=== PATIENT | female | born 1985 | race Caucasian/White ===

== ENCOUNTER 2017-12-23 09:22 | Observation (INO) | payer BC ==
[2017-12-23] MEDS ORDERED: Ondansetron 4 MG/2 ML SDV IVPUSH ONE ×2 (10:33→11:21)
[2017-12-23] MEDS ORDERED: Ketorolac 30 MG/ML SDV IVPUSH ONE (10:33)
[2017-12-23] MEDS ORDERED: Sodium Chloride 0.9% 1,000 ML IV ONE ×2 (10:33→13:18)
[2017-12-23] MEDS ORDERED: Morphine 4 MG/ML Syringe IVPUSH ONE (10:34)
--- NOTE | 2017-12-23 11:14 | EDM.PDOC ---
ED HPI GENERAL MEDICAL PROBLEM - General Chief Complaint: Flank Pain Stated Complaint: BACK PAIN Time Seen by Provider: 12/23/17 10:15 Source of Information: Reports: Patient History Limitations: Reports: No Limitations - History of Present Illness INITIAL COMMENTS - FREE TEXT/NARRATIVE: HISTORY AND PHYSICAL: History of present illness: Patient is a 32-year-old female who presents to the emergency room with complaints of left flank pain that wraps around to the left side of her abdomen started at 7:30 this morning. She states that her urine "looks like Coke and is painful". Does have nausea associated with this. Patient is currently resting on her hands and knees and appears to be uncomfortable, unable to find a position of comfort. She denies any fever, chills, chest pain, shortness of breath or cough. Denies any vomiting, diarrhea or constipation. Review of systems: As per history of present illness and below otherwise all systems reviewed and negative. Past medical history: As per history of present illness and as reviewed below otherwise noncontributory. Surgical history: As per history of present illness and as reviewed below otherwise noncontributory. Social history: No reported history of drug or alcohol abuse. Family history: As per history of present illness and as reviewed below otherwise noncontributory. Physical exam: General: Well-developed and well-nourished 32-year-old female. Alert and oriented. Nontoxic appearing and appears mildly uncomfortable. HEENT: Atraumatic, normocephalic, pupils equal and reactive bilaterally, negative for conjunctival pallor or scleral icterus, mucous membranes moist, throat clear, neck supple, nontender, trachea midline. No drooling or trismus noted. No meningeal signs Lungs: Clear to auscultation, breath sounds equal bilaterally, chest nontender. Heart: S1S2, regular rate and rhythm without overt murmur Abdomen: Soft, nondistended, LUQ/LLQ abdominal discomfort/pain with palpation. Negative for masses or hepatosplenomegaly. Left-sided costovertebral tenderness. Pelvis: Stable nontender. Genitourinary: Deferred. Rectal: Deferred. Skin: Intact, warm, dry. No lesions or rashes noted. Extremities: Atraumatic, negative for cords or calf pain. Neurovascular unremarkable. Neuro: Awake, alert, oriented. Cranial nerves II through XII unremarkable. Cerebellum unremarkable. Motor and sensory unremarkable throughout. Exam nonfocal. Notes: Patient states she is 10 out of 10 pain. IV fluids/medications have been ordered. Labs and CT are pending 1125: Patient had found some relief with medications, pain was down to a 6 out of 10 and is now back to an 8 out of 10. Nausea/vomiting has returned. New medications have been ordered; waiting for CT to be completed. WBC is 18.47, large occult blood with too numerous to count RBCs, noted in her urine. 1315: CT shows a 4-5 mm obstructing stone at the left ureteropelvic junction with moderate hydronephrosis. He shouldn't gets minimal relief with IV pain medications and doesn't feel like she would do well at home. She states she would like to stay for pain management and talked to the urologist. Dr. Nava was paged and consulted on this case. He is agreeable to keeping her for observation on [facility]. Vital signs remain stable patient will go to [facility] shortly. Diagnostics: CBC, CMP, UA, CT abdomen and pelvis Therapeutics: IV fluid, Zofran, Toradol, morphine, dilaudid, rocephin Impression: Kidney stone, left Hydronephrosis Intractable pain Plan: Observation to [facility] Definitive disposition and diagnosis as appropriate pending reevaluation and review of above. Onset: Today Duration: Hour(s): Location: Reports: Abdomen Flank Pain Score (Numeric/FACES): 10 - Related Data Allergies Allergy/AdvReac Type Severity Reaction Status Date / Time No Known Allergies Allergy Verified 12/23/17 10:11 Home Meds: Home Meds . [No Known Home Meds] 12/23/17 [History] Past Medical History HEENT History: Reports: Other (See Below) Other HEENT History: Wears glasses Genitourinary History: Reports: STD Other Genitourinary History: Genital herpes [employer] History: Reports: Other OB/BYN History: Gestational Hypertension - both pregnancies Musculoskeletal History: Reports: None Neurological History: Reports: None Psychiatric History: Reports: None Endocrine/Metabolic History: Reports: None Other Dermatologic History: Hives, Pt states she takes allergra per MD for hives all over her body. - Past Surgical History HEENT Surgical History: Reports: Tonsillectomy Other HEENT Surgeries/Procedures: 2007 Female Surgical History: Reports: Section, LEEP Other Female Surgeries/Procedures: 2011, 2014 Musculoskeletal Surgical History: Reports: None Oncologic Surgical History: Reports: Biopsy of Breast Other Oncologic Surgeries/Procedures: 2009 Social & Family History - Family History Family Medical History: Noncontributory - Tobacco Use Smoking Status *Q: Never Smoker Second Hand Smoke Exposure: No - Caffeine Use Caffeine Use: Reports: Other - Recreational Drug Use Recreational Drug Use: No ED ROS GENERAL - Review of Systems Review Of Systems: ROS reveals no pertinent complaints other than HPI. ED EXAM, GI/ABD - Physical Exam Exam: See Below (See dictation) Course - Vital Signs Last Recorded V/S: Last Vital Signs Temp 97.7 F 12/23/17 10:43 Pulse 100 12/23/17 11:26 Resp 24 H 12/23/17 11:26 BP 117/94 H 12/23/17 11:26 Pulse Ox 99 12/23/17 11:26 - Orders/Labs/Meds Orders: Active Orders 24 hr Category Date Time Status Admission Status [Patient Status] [ADT] Stat ADT 12/23/17 13:17 Ordered UA W/MICROSCOPIC [URIN] Stat Lab 12/23/17 10:35 Ordered Sodium Chloride 0.9% [Normal Saline] 1,000 ml Med 12/23/17 13:18 Ordered IV STAT Labs: Laboratory Tests 12/23/17 12/23/17 12/23/17 Range/Units 10:22 10:22 10:35 WBC 18.47 H (4.0-11.0) K/uL RBC 4.80 (4.30-5.90) M/uL Hgb 14.3 (12.0-16.0) g/dL Hct 42.0 (36.0-46.0) % MCV 87.5 (80.0-98.0) fL MCH 29.8 (27.0-32.0) pg MCHC 34.0 (31.0-37.0) g/dL RDW Std Deviation 46.3 (28.0-62.0) fl RDW Coeff of Mitra 15 (11.0-15.0) % Plt Count 379 (150-400) K/uL MPV 10.00 (7.40-12.00) fL Neut % (Auto) 86.8 H (48.0-80.0) % Lymph % (Auto) 8.2 L (16.0-40.0) % Carver % (Auto) 4.8 (0.0-15.0) % Eos % (Auto) 0.1 (0.0-7.0) % Baso % (Auto) 0.1 (0.0-1.5) % Neut # (Auto) 16.0 H (1.4-5.7) K/uL Lymph # (Auto) 1.5 (0.6-2.4) K/uL Carver # (Auto) 0.9 H (0.0-0.8) K/uL Eos # (Auto) 0.0 (0.0-0.7) K/uL Baso # (Auto) 0.0 (0.0-0.1) K/uL Nucleated RBC % 0.0 /100WBC Nucleated RBCs # 0 K/uL Sodium 141 (136-145) mmol/L Potassium 4.4 (3.5-5.1) mmol/L Chloride 107 (98-107) mmol/L Carbon Dioxide 23.2 (21.0-32.0) mmol/L BUN 14 (7.0-18.0) mg/dL Creatinine 1.2 H (0.6-1.0) mg/dL Est Cr Clr Drug Dosing 66.64 mL/min Estimated GFR (MDRD) 51.4 ml/min Glucose 123 H (74-106) mg/dL Calcium 9.3 (8.5-10.1) mg/dL Total Bilirubin 0.7 (0.2-1.0) mg/dL AST 18 (15-37) IU/L ALT 14 (14-63) IU/L Alkaline Phosphatase 47 (46-116) U/L Total Protein 7.3 (6.4-8.2) g/dL Albumin 4.5 (3.4-5.0) g/dL Globulin 2.8 (2.0-3.5) g/dL Albumin/Globulin Ratio 1.6 (1.3-2.8) Urine Color RED Urine Appearance CLOUDY Urine pH 6.5 (5.0-8.0) Ur Specific [place] 1.025 (1.001-1.035) Urine Protein 100 (NEGATIVE) mg/dL Urine Glucose (UA) NEGATIVE (NEGATIVE) mg/dL Urine Ketones 40 H (NEGATIVE) mg/dL Urine Occult Blood LARGE H (NEGATIVE) Urine Nitrite NEGATIVE (NEGATIVE) Urine Bilirubin NEGATIVE (NEGATIVE) Urine Urobilinogen 0.2 (<2.0) EU/dL Ur Leukocyte Esterase NEGATIVE (NEGATIVE) Urine RBC TOO NUMBEROUS TO CT H (0-2/HPF) Urine WBC 0-2 (0-5/HPF) Ur Epithelial Cells RARE (NONE-FEW) Amorphous Sediment RARE (NEGATIVE) Urine Bacteria RARE (NEGATIVE) Urine HCG, Qual (NEGATIVE) 12/23/17 Range/Units 10:35 WBC (4.0-11.0) K/uL RBC (4.30-5.90) M/uL Hgb (12.0-16.0) g/dL Hct (36.0-46.0) % MCV (80.0-98.0) fL MCH (27.0-32.0) pg MCHC (31.0-37.0) g/dL RDW Std Deviation (28.0-62.0) fl RDW Coeff of Mitra (11.0-15.0) % Plt Count (150-400) K/uL MPV (7.40-12.00) fL Neut % (Auto) (48.0-80.0) % Lymph % (Auto) (16.0-40.0) % Carver % (Auto) (0.0-15.0) % Eos % (Auto) (0.0-7.0) % Baso % (Auto) (0.0-1.5) % Neut # (Auto) (1.4-5.7) K/uL Lymph # (Auto) (0.6-2.4) K/uL Carver # (Auto) (0.0-0.8) K/uL Eos # (Auto) (0.0-0.7) K/uL Baso # (Auto) (0.0-0.1) K/uL Nucleated RBC % /100WBC Nucleated RBCs # K/uL Sodium (136-145) mmol/L Potassium (3.5-5.1) mmol/L Chloride (98-107) mmol/L Carbon Dioxide (21.0-32.0) mmol/L BUN (7.0-18.0) mg/dL Creatinine (0.6-1.0) mg/dL Est Cr Clr Drug Dosing mL/min Estimated GFR (MDRD) ml/min Glucose (74-106) mg/dL Calcium (8.5-10.1) mg/dL Total Bilirubin (0.2-1.0) mg/dL AST (15-37) IU/L ALT (14-63) IU/L Alkaline Phosphatase (46-116) U/L Total Protein (6.4-8.2) g/dL Albumin (3.4-5.0) g/dL Globulin (2.0-3.5) g/dL Albumin/Globulin Ratio (1.3-2.8) Urine Color Urine Appearance Urine pH (5.0-8.0) Ur Specific [place] (1.001-1.035) Urine Protein (NEGATIVE) mg/dL Urine Glucose (UA) (NEGATIVE) mg/dL Urine Ketones (NEGATIVE) mg/dL Urine Occult Blood (NEGATIVE) Urine Nitrite (NEGATIVE) Urine Bilirubin (NEGATIVE) Urine Urobilinogen (<2.0) EU/dL Ur Leukocyte Esterase (NEGATIVE) Urine RBC (0-2/HPF) Urine WBC (0-5/HPF) Ur Epithelial Cells (NONE-FEW) Amorphous Sediment (NEGATIVE) Urine Bacteria (NEGATIVE) Urine HCG, Qual NEGATIVE (NEGATIVE) Meds: Medications Discontinued Medications Generic Name Dose Route Start Last Admin Trade Name Freq PRN Reason Stop Dose Admin Hydromorphone HCl 0.5 mg 12/23/17 11:20 12/23/17 11:25 Dilaudid IV 12/23/17 11:21 0.5 mg ONETIME ONE Administration Hydromorphone HCl 0.5 mg 12/23/17 12:40 12/23/17 12:44 Dilaudid IV 12/23/17 12:41 0.5 mg ONETIME ONE Administration Sodium Chloride 1,000 mls @ 999 mls/hr 12/23/17 10:33 12/23/17 10:41 Normal Saline IV 12/23/17 11:33 999 mls/hr .Bolus ONE Administration Ketorolac Tromethamine 30 mg 12/23/17 10:33 12/23/17 10:41 Toradol IVPUSH 12/23/17 10:34 30 mg ONETIME ONE Administration Morphine Sulfate 4 mg 12/23/17 10:34 12/23/17 10:41 Morphine IVPUSH 12/23/17 10:35 4 mg ONETIME ONE Administration Ondansetron HCl 4 mg 12/23/17 10:33 12/23/17 10:41 Zofran IVPUSH 12/23/17 10:34 4 mg ONETIME ONE Administration Ondansetron HCl 4 mg 12/23/17 11:21 12/23/17 11:25 Zofran IVPUSH 12/23/17 11:22 4 mg ONETIME ONE Administration Departure - Departure Time of Disposition: 13:21 Disposition: Refer to Observation Clinical Impression: Kidney stone on left side, Intractable pain - Discharge Information Referrals: PCP,None [Primary Care Provider] - Forms: ED Department Discharge - My Orders Last 24 Hours: My Active Orders 12/23/17 10:35 UA W/MICROSCOPIC [URIN] Stat 12/23/17 13:17 Admission Status [Patient Status] [ADT] Stat 12/23/17 13:18 Sodium Chloride 0.9% [Normal Saline] 1,000 ml IV STAT - Assessment/Plan Last 24 Hours: My Active Orders 12/23/17 10:35 UA W/MICROSCOPIC [URIN] Stat 12/23/17 13:17 Admission Status [Patient Status] [ADT] Stat 12/23/17 13:18 Sodium Chloride 0.9% [Normal Saline] 1,000 ml IV STAT
[2017-12-23] MEDS ORDERED: HYDROmorphone 2 MG/ML SDV IV ONE ×2 (11:20→12:40)
--- NOTE | 2017-12-23 12:57 | CT ---
CT of the abdomen and pelvis without contrast. HISTORY: Left flank pain TECHNIQUE: Axial CT images were obtained of the abdomen and pelvis without contrast. Coronal and sagi ttal reconstructions obtained. FINDINGS: The lung bases are clear, no pleural effusion. The liver, spleen, adrenal glands, and pancreas appear unremarkable for noncontrast examination. The gallbladder appears normal. There is no bulky retroperitoneal lymphadenopathy. No abdominal ascites. There is a 4 to 5 mm obstructing stone at the left ureteropelvic junction with moderate proximal hydr onephrosis. Nonobstructing nephrolithiasis noted bilaterally. Small left renal cortical cyst. The large and small bowel are normal in caliber without evidence of obstruction. The appendix appears normal. There is no bulky pelvic lymphadenopathy. No free fluid. No free air. The urinary bladder ap pears normal. The visualized osseous structures appear normal. IMPRESSION: 1. There is a 4 to 5 mm obstructing stone at the left ureteropelvic junction proximal hydronephrosis. 2. Nonobstructing nephrolithiasis bilaterally.
[2017-12-23] MEDS ORDERED: cefTRIAXone 1 GM in Premix Bag 1 BAG IV ONE (13:22)
[2017-12-23] MEDS ORDERED: cefTRIAXone 1 GM in Sodium Chloride 0.9% 50 ML IV ONE (13:32)
[2017-12-23] MEDS: Lactated Ringers 1,000 ML IV SCH ×2 (15:23→23:02)
[2017-12-23] MEDS ORDERED: HYDROmorphone 1 MG/ML Syringe IVPUSH ONE (15:27)
[2017-12-23] MEDS: Ciprofloxacin in D5W 400 MG in Premix Bag 1 BAG IV SCH ×2 (18:03)
[2017-12-23] MEDS ORDERED: Ondansetron 4 MG/2 ML SDV IVPUSH PRN (19:51)
[2017-12-23] MEDS ORDERED: HYDROmorphone 1 MG/ML Syringe IVPUSH PRN (19:53)
[2017-12-24] MEDS: Ciprofloxacin in D5W 400 MG in Premix Bag 1 BAG IV SCH ×2 (05:20)
[2017-12-24] MEDS: Lactated Ringers 1,000 ML IV SCH (06:46)
[2017-12-24 08:39] VITALS: BP 112/66
--- NOTE | 2017-12-25 02:03 | DISCH ---
DATE OF DISCHARGE: 12/24/2017 PRIMARY CARE PHYSICIAN: Natasha PCP HOSPITAL COURSE: She is 32 years old. She was admitted through the emergency room with a 5 mm left UPJ stone with pain. Her white blood count was 18,000. UA was not suggestive of UTI at all. She has had history of urinary stones. The CT scan showed 2 smaller stones in the left kidney and a larger one about 6 to 7 mm in the lower pole calyx on the right. While in the hospital, she was given IV fluids. She was given Cipro IV in addition to the Rocephin that she received earlier in the day through the ER. By next morning, roughly about 14 or 16 hours later, she was pain free. Her white blood count is down to 8400. She is discharged with the plan of bringing her back in 2 days for ESWL. She is sent home with a strainer. She is sent home on Percocet 5/325 mg, 30 of those, no refills. She is also sent home on Flomax 0.4 mg daily to be taken at bedtime, total number of 20 doses. Also on Zofran for nausea. She will be back in 2 days for ESWL. SAMANTHA / MAKI /[id number]
== END 2017-12-24 11:10 | disposition home or self-care (01) ==
LOC: MW.ED 09:22 → MW.MS 14:07
PROVIDERS: ADMIT Urology; ATTEND Urology
DX: N13.2 Hydronephrosis with renal and ureteral calculous obstruction (principal); Z87.442 Personal history of urinary calculi; Z90.89 Acquired absence of other organs
CPT/HCPCS: 36415; 74176; 74176-26; 80053; 81001; 81025; 85025; 96361; 96365; 96367; 96375; 96376; 99285-25; G0378; J0696; J0744; J1170; J1885; J2270; J2405; J7040; J7120

== ENCOUNTER 2017-12-26 06:49 | Day surgery (SDC) | payer BC ==
[2017-12-26] MEDS ORDERED: Ondansetron 4 MG/2 ML SDV ONE (07:00)
[2017-12-26] MEDS ORDERED: Lactated Ringers 1,000 ML IV SCH (07:00)
[2017-12-26] MEDS ORDERED: Propofol 200 MG/20 ML SDV ONE ×2 (07:00→08:51)
[2017-12-26] MEDS ORDERED: Midazolam 1 MG/ML 2 ML SDV ONE (07:00)
[2017-12-26] MEDS ORDERED: Dexamethasone 4 MG/ML 5 ML MDV ONE (07:00)
[2017-12-26] MEDS ORDERED: fentaNYL 250 MCG/5 ML SDV ONE (07:00)
[2017-12-26] MEDS ORDERED: fentaNYL 100 MCG/2 ML SDV IVPUSH PRN (07:38)
--- NOTE | 2017-12-26 07:51 | PCM.PREANE ---
Preanesthetic Assessment - Procedure Proposed Procedure: ESWL - Anesthesia/Transfusion/Family Hx Anesthesia History: Prior Anesthesia Without Reaction Family History of Anesthesia Reaction: No Transfusion History: No Prior Transfusion(s) Intubation History: Unknown - Review of Systems General: Other (mild pain thi9s am) Pulmonary: No Symptoms Cardiovascular: No Symptoms Gastrointestinal: No Symptoms Neurological: No Symptoms Other: Reports: None - Physical Assessment NPO Status Date: 12/25/17 NPO Status Time: 22:00 O2 Sat by Pulse Oximetry: 100 Respiratory Rate: 15 Vital Signs: Last Vital Signs Temp 98.2 F 12/26/17 07:15 Pulse 62 12/26/17 07:15 Resp 15 12/26/17 07:15 BP 135/77 12/26/17 07:15 Pulse Ox 100 12/26/17 07:15 Height: 5 ft 8 in Weight: 145 lb ASA Class: 1 Mental Status: Alert & Oriented x3 Airway Class: Mallampati = 2 Dentition: Reports: Normal Dentition, [place](s) (all upper crowns) Thyro-Mental Finger Breadths: 3 (short 3) Mouth Opening Finger Breadths: 3 (retrognathia) Lungs: Clear to Auscultation, Normal Respiratory Effort Cardiovascular: Regular Rate, Regular Rhythm, No Murmurs - Lab Values: Laboratory Last Values Urine HCG, Qual NEGATIVE (NEGATIVE) 12/26/17 06:52 - Allergies Allergies/Adverse Reactions: Allergies Allergy/AdvReac Type Severity Reaction Status Date / Time No Known Allergies Allergy Verified 12/23/17 10:11 - Blood Blood Available: No Product(s) Available: None - Acknowledgements Anesthesia Type Planned: General Anesthesia (OET vs LMA) Pt an Appropriate Candidate for the Planned Anesthesia: Yes Alternatives and Risks of Anesthesia Discussed w Pt/Guardian: Yes Pt/Guardian Understands and Agrees with Anesthesia Plan: Yes PreAnesthesia Questionnaire HEENT History: Reports: Other (See Below) Other HEENT History: wears glasses/contacts Genitourinary History: Reports: Renal Calculus Other Genitourinary History: Genital herpes [employer] History: Reports: Other OB/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 - Past Surgical History HEENT Surgical History: Reports: Tonsillectomy Other HEENT Surgeries/Procedures: 2006 Female Surgical History: Reports: Breast Biopsy, Section, LEEP Other Female Surgeries/Procedures: 2011, 2014 Musculoskeletal Surgical History: Reports: None Oncologic Surgical History: Reports: Biopsy of Breast Other Oncologic Surgeries/Procedures: 2009 - SUBSTANCE USE Smoking Status *Q: Never Smoker Recreational Drug Use History: No - HOME MEDS Home Medications: Home Meds Acetaminophen/oxyCODONE [Percocet 325-5 MG] 1 each PO Q4H PRN #30 tab 12/24/17 [ Rx] Ondansetron [Zofran ODT] 4 mg PO Q4H PRN #20 tab.dis 12/24/17 [Rx] Tamsulosin [Tamsulosin 24 Hr] 0.4 mg PO BEDTIME #20 cap.er 12/24/17 [Rx] - CURRENT (IN HOUSE) MEDS Current Meds: Current Medications Fentanyl (Sublimaze) 50 mcg IVPUSH Q5M PRN PRN Reason: Pain (moderate 4-6) Stop: 12/26/17 13:00 Lactated Ringer's (Ringers, Lactated) 1,000 mls @ 125 mls/hr IV ASDIRECTED CAROLYNN Last Admin: 12/26/17 07:29 Dose: 125 mls/hr Discontinued Medications Dexamethasone (Dexamethasone) Confirm Administered Dose 20 mg .ROUTE .STK-MED ONE Stop: 12/26/17 07:01 Fentanyl (Sublimaze) Confirm Administered Dose 250 mcg .ROUTE .STK-MED ONE Stop: 12/26/17 07:01 Midazolam HCl (Versed 1 Mg/Ml) Confirm Administered Dose 2 mg .ROUTE .STK-MED ONE Stop: 12/26/17 07:01 Ondansetron HCl (Zofran) Confirm Administered Dose 4 mg .ROUTE .STK-MED ONE Stop: 12/26/17 07:01 Propofol (Diprivan 20 Ml) Confirm Administered Dose 200 mg .ROUTE .STK-MED ONE Stop: 12/26/17 07:01
[2017-12-26] MEDS ORDERED: Glycopyrrolate 0.2 MG/ML SDV ONE (08:27)
--- NOTE | 2017-12-26 09:46 | PCM.POSTAN ---
POST ANESTHESIA ASSESSMENT - MENTAL STATUS Mental Status: Alert, Oriented - RESPIRATORY Respiratory Status: Respiratory Rate WNL, Airway Patent, O2 Saturation Stable - CARDIOVASCULAR CV Status: Pulse Rate WNL, Blood Pressure Stable - GASTROINTESTINAL GI Status: No Symptoms - POST OP HYDRATION Hydration Status: Adequate & Stable
--- NOTE | 2017-12-26 10:06 | OR ---
SURGEON: Phong Fernandez M.D. DATE OF PROCEDURE: 12/26/2017 PREOPERATIVE DIAGNOSIS: Bilateral renal stones; one left UPJ stone, 5 mm, and a 7 mm lower pole right calyceal stone. POSTOPERATIVE DIAGNOSIS: Bilateral renal stones; one left UPJ stone, 5 mm, and a 7 mm lower pole right calyceal stone. OPERATION: ESWL both sides. DESCRIPTION OF PROCEDURE: The patient was given general anesthesia. She was placed on the lithotripsy table. The position of the patient was adjusted, so the stone could be treated. The UPJ stone was treated first and received a total of 1000 shocks at the end of the treatment. The shadow of the stone completely disappeared. Having such good success with the first stone, I decided to treat the second stone which was slightly larger at 7 mm, and it was on the right side in a lower pole calyx. That stone was subsequently treated and also received a total of 1000 shocks, monitored throughout the treatment, the shadow of the stone completely disappeared as well on that side. With that done, the procedure was terminated, and the patient was sent back to recovery room in good condition. PLAN: I will be seeing her again in 2 weeks for followup. SAMANTHA / MAKI /[id number]
[2017-12-26 10:49] VITALS: BP 120/59
--- NOTE | 2017-12-26 12:15 | PCM48HPAN ---
Post Anesthesia Note - EVALUATION WITHIN 48HRS OF ANESTHETIC Vital Signs in Normal Range: Yes Patient Participated in Evaluation: Yes Respiratory Function Stable: Yes Airway Patent: Yes Cardiovascular Function Stable: Yes Hydration Status Stable: Yes Pain Control Satisfactory: Yes Nausea and Vomiting Control Satisfactory: Yes Mental Status Recovered: Yes Resp Rate: 14 - COMMENTS/OBSERVATIONS Free Text/Narrative:: Remained drowsy until suddenly arroused and ready to go home.
== END 2017-12-26 11:20 | disposition home or self-care (01) ==
LOC: MW.SDS 06:49
PROVIDERS: ATTEND Urology
DX: N20.1 Calculus of ureter (principal); Z90.89 Acquired absence of other organs
CPT/HCPCS: 81025; J1100; J2250; J2405; J2704; J3010; J7120

== ENCOUNTER 2017-12-28 09:00 | Emergency (ER) | payer BC ==
--- NOTE | 2017-12-28 09:13 | EDM.PDOC ---
ED HPI GENERAL MEDICAL PROBLEM - General Chief Complaint: Genitourinary Problem Stated Complaint: KIDNEY STONE Time Seen by Provider: 12/28/17 09:13 - History of Present Illness INITIAL COMMENTS - FREE TEXT/NARRATIVE: HISTORY AND PHYSICAL: History of present illness: 32-year-old female presenting to the emergency department with chief complaint of bilateral flank pain with recent history of nephrolithiasis 12/23. Patient states that she presented initially to the emergency department on Saturday12/23/17 where she is found to have a 4-5 mm obstructing stone at the left ureteropelvic junction with associated proximal hydronephrosis. There was also nonobstructing nephrolithiasis bilaterally. Pain was controlled and patient was discharged with a prescription for pain, antinausea, and Flomax. Following day 12/24/17 patient received lithotripsy bilaterally by Dr. Fernandez, urologist. Patient states that since then she has had some increasing pain bilaterally in her flanks as well as associated hematuria. She denies any passage of stones. Denies any current fevers, chills, malaise or other signs of systemic infection. She does have some nausea and dysuria. 1115-CT revealed a 6 mm left UPJ stone now located at the UVJ. There was also mild to moderate left hydronephrosis and hydroureter. Bilateral nonobstructing stones were noted. Urinalysis ending 1132- UA unremarkable to infection. Dr. Fernandez, urologist, consulted. Instructed to make patient comfortable with pain and antinausea meds. Make sure patient has strainer to collect stones and he will see her at 1 PM on Saturday afternoon. Patient should be able to pass stones as he saw that they were broken. Review of systems: As per history of present illness and below otherwise all systems reviewed and negative. Past medical history: As per history of present illness and as reviewed below otherwise noncontributory. Surgical history: As per history of present illness and as reviewed below otherwise noncontributory. Social history: No reported history of drug or alcohol abuse. Family history: As per history of present illness and as reviewed below otherwise noncontributory. Physical exam: HEENT: Atraumatic, normocephalic, pupils reactive, negative for conjunctival pallor or scleral icterus, mucous membranes moist, throat clear, neck supple, nontender, trachea midline. Lungs: Clear to auscultation, breath sounds equal bilaterally, chest nontender. Heart: S1S2, regular, negative for clicks, rubs, or JVD. Abdomen: Soft, nondistended, nontender. Negative for masses or hepatosplenomegaly. bilateral CVA tenderness radiating inferiorly and anteriorly Pelvis: Stable nontender. Genitourinary: Deferred. Rectal: Deferred. Extremities: Atraumatic, negative for cords or calf pain. Neurovascular unremarkable. Neuro: Awake, alert, oriented. Cranial nerves II through XII unremarkable. Cerebellum unremarkable. Motor and sensory unremarkable throughout. Exam nonfocal. Diagnostics: CBC, CMP, UA/UC, CT abdomen and pelvis Therapeutics: IV normal saline 1 L, 0.5 mg IV Dilaudid 2, 8 mg IV Zofran 1, Percocet 10-325 q 4hr PO #12, Zofran 4mg q 4hr PO #12 Impression: Ureterolithiasis Bilateral Nephrolithiasis Intractable Pain Nausea and vomiting Plan: Patient's pain initially was controlled with 0.5 mg Dilaudid IV which she received twice while in the emergency room. CT abdomen did show a 6 mm stone at the UVP junction. Dr. Fernandez, urologist was consulted and instructed to have patient follow-up with him on Saturday. She should also strain her urine continually. We will discharge her with Dilaudid 4 mg by mouth every 4-6 hours when necessary pain. Patient states that she still does have Zofran for nausea and is currently asymptomatic. Urinalysis showed no signs of infection. Patient was discharged in good condition with instructions to follow-up with Dr. Fernandez on Saturday at 1 PM at his office as well as return to emergency department if she had any new or worsening symptoms. Left Flank Pain Score (Numeric/FACES): 10 - Related Data Allergies Allergy/AdvReac Type Severity Reaction Status Date / Time No Known Allergies Allergy Verified 12/28/17 09:11 Home Meds: Home Meds Acetaminophen/oxyCODONE [Percocet 325-5 MG] 1 each PO Q4H PRN #30 tab 12/24/17 [ Rx] Ondansetron [Zofran ODT] 4 mg PO Q4H PRN #20 tab.dis 12/24/17 [Rx] Tamsulosin [Tamsulosin 24 Hr] 0.4 mg PO BEDTIME #20 cap.er 12/24/17 [Rx] Past Medical History HEENT History: Reports: Other (See Below) Other HEENT History: wears glasses/contacts Genitourinary History: Reports: Renal Calculus Other Genitourinary History: Genital 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 - Past Surgical History HEENT Surgical History: Reports: Tonsillectomy Other HEENT Surgeries/Procedures: 2006 Female Surgical History: Reports: Breast Biopsy, Section, LEEP Other Female Surgeries/Procedures: 2011, 2014 Musculoskeletal Surgical History: Reports: None Oncologic Surgical History: Reports: Biopsy of Breast Other Oncologic Surgeries/Procedures: 2009 Social & Family History - Family History Family Medical History: Noncontributory - Caffeine Use Caffeine Use: Reports: None ED ROS GENERAL - Review of Systems Review Of Systems: See Below ED EXAM, GENERAL - Physical Exam Exam: See Below Course - Vital Signs Last Recorded V/S: Last Vital Signs Temp 97.9 F 12/28/17 09:04 Pulse 99 12/28/17 11:13 Resp 16 12/28/17 11:13 BP 142/68 H 12/28/17 10:31 Pulse Ox 98 12/28/17 11:13 - Orders/Labs/Meds Orders: Active Orders 24 hr Category Date Time Status Abdomen Pelvis wo Cont [CT] Stat Exams 12/28/17 09:21 Taken CULTURE URINE [RM] Stat Lab 12/28/17 11:08 Ordered URINALYSIS W/MICROSCOPIC [UA W/MICROSCOPIC] [URIN] Stat Lab 12/28/17 11:08 Ordered Sodium Chloride 0.9% [Normal Saline] 1,000 ml Med 12/28/17 11:30 Active IV ASDIRECTED Medication Orders Sodium Chloride (Normal Saline) 1,000 mls @ 125 mls/hr IV ASDIRECTED CAROLYNN Last Admin: 12/28/17 11:49 Dose: 125 mls/hr Labs: Laboratory Tests 05/19/18 05/19/18 05/19/18 Range/Units 09:22 09:22 11:08 WBC 11.86 H (4.0-11.0) K/uL RBC 4.45 (4.30-5.90) M/uL Hgb 13.2 (12.0-16.0) g/dL Hct 39.2 (36.0-46.0) % MCV 88.1 (80.0-98.0) fL MCH 29.7 (27.0-32.0) pg MCHC 33.7 (31.0-37.0) g/dL RDW Std Deviation 46.2 (28.0-62.0) fl RDW Coeff of Mitra 14 (11.0-15.0) % Plt Count 275 (150-400) K/uL MPV 9.70 (7.40-12.00) fL Neut % (Auto) 81.4 H (48.0-80.0) % Lymph % (Auto) 12.7 L (16.0-40.0) % Woods % (Auto) 5.0 (0.0-15.0) % Eos % (Auto) 0.8 (0.0-7.0) % Baso % (Auto) 0.1 (0.0-1.5) % Neut # (Auto) 9.7 H (1.4-5.7) K/uL Lymph # (Auto) 1.5 (0.6-2.4) K/uL Woods # (Auto) 0.6 (0.0-0.8) K/uL Eos # (Auto) 0.1 (0.0-0.7) K/uL Baso # (Auto) 0.0 (0.0-0.1) K/uL Nucleated RBC % 0.0 /100WBC Nucleated RBCs # 0 K/uL Sodium 140 (136-145) mmol/L Potassium 4.0 (3.5-5.1) mmol/L Chloride 106 (98-107) mmol/L Carbon Dioxide 26.3 (21.0-32.0) mmol/L BUN 12 (7.0-18.0) mg/dL Creatinine 1.1 H (0.6-1.0) mg/dL Est Cr Clr Drug Dosing 72.69 mL/min Estimated GFR (MDRD) 56.9 ml/min Glucose 101 (74-106) mg/dL Calcium 8.7 (8.5-10.1) mg/dL Total Bilirubin 0.5 (0.2-1.0) mg/dL AST 13 L (15-37) IU/L ALT 15 (14-63) IU/L Alkaline Phosphatase 37 L (46-116) U/L Total Protein 6.6 (6.4-8.2) g/dL Albumin 4.0 (3.4-5.0) g/dL Globulin 2.6 (2.0-3.5) g/dL Albumin/Globulin Ratio 1.5 (1.3-2.8) Urine Color YELLOW Urine Appearance CLEAR Urine pH 6.5 (5.0-8.0) Ur Specific [place] <= 1.005 (1.001-1.035) Urine Protein NEGATIVE (NEGATIVE) mg/dL Urine Glucose (UA) NEGATIVE (NEGATIVE) mg/dL Urine Ketones NEGATIVE (NEGATIVE) mg/dL Urine Occult Blood LARGE H (NEGATIVE) Urine Nitrite NEGATIVE (NEGATIVE) Urine Bilirubin NEGATIVE (NEGATIVE) Urine Urobilinogen 0.2 (<2.0) EU/dL Ur Leukocyte Esterase NEGATIVE (NEGATIVE) Urine RBC 40-50 (0-2/HPF) Urine WBC 2-4 (0-5/HPF) Ur Epithelial Cells FEW (NONE-FEW) Urine Bacteria FEW (NEGATIVE) Meds: Medications Generic Name Dose Route Start Last Admin Trade Name Deondre PRN Reason Stop Dose Admin Sodium Chloride 1,000 mls @ 125 mls/hr 12/28/17 11:30 12/28/17 11:49 Normal Saline IV 125 mls/hr ASDIRECTED CAROLYNN Administration Discontinued Medications Generic Name Dose Route Start Last Admin Trade Name Frejaret PRN Reason Stop Dose Admin Hydromorphone HCl 0.5 mg 12/28/17 09:29 12/28/17 09:43 Dilaudid IVPUSH 12/28/17 09:30 0.5 mg ONETIME ONE Administration Hydromorphone HCl 0.5 mg 12/28/17 09:34 12/28/17 09:45 Dilaudid IVPUSH 12/28/17 09:35 Not Given ONETIME ONE Hydromorphone HCl 0.5 mg 12/28/17 10:03 12/28/17 10:08 Dilaudid IVPUSH 12/28/17 10:04 0.5 mg ONETIME ONE Administration Hydromorphone HCl 4 mg 12/28/17 12:30 12/28/17 12:44 Dilaudid PO 12/28/17 12:31 4 mg NOW STA Administration Sodium Chloride 1,000 mls @ 999 mls/hr 12/28/17 09:22 12/28/17 09:34 Normal Saline IV 12/28/17 10:22 999 mls/hr STAT ONE Administration Ketorolac Tromethamine 60 mg 12/28/17 09:23 12/28/17 09:44 Toradol IM 12/28/17 09:24 Not Given ONETIME ONE Ondansetron HCl 8 mg 12/28/17 09:34 12/28/17 09:44 Zofran IVPUSH 12/28/17 09:35 8 mg ONETIME ONE Administration Oxycodone/Acetaminophen 1 tab 12/28/17 11:37 12/28/17 11:49 Percocet 325-10 Mg PO 12/28/17 11:38 1 tab ONETIME ONE Administration Departure - Departure Time of Disposition: 13:39 Disposition: Home, Self-Care 01 Condition: Good Clinical Impression: Ureterolithiasis - Discharge Information Referrals: PCP,None [Primary Care Provider] - Forms: ED Department Discharge Additional Instructions: My general discharge The following information is given to patients seen in the emergency department who are being discharged to home. This information is to outline your options for follow-up care. We provide all patients seen in our emergency department with a follow-up referral. The need for follow-up, as well as the timing and circumstances, are variable depending upon the specifics of your emergency department visit. If you don't have a primary care physician on staff, we will provide you with a referral. We always advise you to contact your personal physician following an emergency department visit to inform them of the circumstance of the visit and for follow-up with them and/or the need for any referrals to a consulting specialist. The emergency department will also refer you to a specialist when appropriate. This referral assures that you have the opportunity for follow-up care with a specialist. All of these measure are taken in an effort to provide you with optimal care, which includes your follow-up. Under all circumstances we always encourage you to contact your private physician who remains a resource for coordinating your care. When calling for follow-up care, please make the office aware that this follow-up is from your recent emergency room visit. If for any reason you are refused follow-up, please contact the [facility] Emergency Department at and asked to speak to the emergency department charge nurse. [facility]ty [facility] - Urology [address] [place] [id number] Follow-up with Dr. Nava on Saturday at 1 PM. Continue to strain urine to collect stones. Take pain medication as prescribed as needed every 4-6 hours. Return to emergency department if any new or worsening symptoms including but not limited to fever, chills, increased pain, or other signs of infection. - My Orders Last 24 Hours: My Active Orders 12/28/17 09:21 Abdomen Pelvis wo Cont [CT] Stat 12/28/17 11:08 CULTURE URINE [RM] Stat URINALYSIS W/MICROSCOPIC [UA W/MICROSCOPIC] [URIN] Stat 12/28/17 11:30 Sodium Chloride 0.9% [Normal Saline] 1,000 ml IV ASDIRECTED - Assessment/Plan Last 24 Hours: My Active Orders 12/28/17 09:21 Abdomen Pelvis wo Cont [CT] Stat 12/28/17 11:08 CULTURE URINE [RM] Stat URINALYSIS W/MICROSCOPIC [UA W/MICROSCOPIC] [URIN] Stat 12/28/17 11:30 Sodium Chloride 0.9% [Normal Saline] 1,000 ml IV ASDIRECTED
[2017-12-28] MEDS ORDERED: Sodium Chloride 0.9% 1,000 ML IV ONE (09:22)
[2017-12-28] MEDS ORDERED: Ketorolac 60 MG/2 ML SDV IM ONE (09:23)
[2017-12-28] MEDS ORDERED: HYDROmorphone 2 MG/ML Syringe IVPUSH ONE (09:29)
[2017-12-28] MEDS ORDERED: Ondansetron 4 MG/2 ML SDV IVPUSH ONE (09:34)
[2017-12-28] MEDS ORDERED: HYDROmorphone 2 MG/ML SDV IVPUSH ONE ×2 (09:34→10:03)
[2017-12-28 10:32] VITALS: BP 142/68
[2017-12-28] MEDS ORDERED: Sodium Chloride 0.9% 1,000 ML IV SCH (11:30)
[2017-12-28] MEDS ORDERED: Acetaminophen/oxyCODONE 325-10 MG Tab PO ONE (11:37)
[2017-12-28] MEDS ORDERED: HYDROmorphone 2 MG Tab PO STA (12:30)
--- NOTE | 2017-12-30 10:36 | CT ---
EXAM DATE: 12/28/17 PATIENT'S AGE: 32 Patient: WILLIAMS RODRIGUEZ Facility: [place], [place] Site . Site : [id number] Study: CT Abdomen/Pelvis [id number]/19/2018 9:59:32 AM Ordering Physician: Sean Daugherty Final Report: Abdominal pain status post lithotripsy Comparison CT abdomen pelvis 12/23/2017. FINDINGS: Technique noncontrast CT abdomen pelvis with coronal sagittal reformat images obtained. Findings: Heart size normal. No pericardial effusion. No pleural effusion. The lung bases appear clear. The unenhanced liver spleen pancreas gallbladder adrenal glands are unremarkable. Bilateral nonobstructing stones again seen overall without significant change in the left. Larger stone on the right lower pole appears smaller and fragmented. Pain. There is mild to moderate left hydronephrosis. The previous UPJ stone is no longer at the UPJ can now located at the UVJ and measures 6 mm. Urinary bladder is otherwise unremarkable. Apparent stool in the colon. Bowel is unremarkable. No suspicious bony lesions. IMPRESSION: 1. 6 millimeters left UPJ stone now is located at the UVJ. Mild to moderate left hydronephrosis and hydroureter. Additional bilateral nonobstructing stones. Please note that all CT scans at this facility use dose modulation, iterative reconstruction, and/or weight-based dosing when appropriate to reduce radiation dose to as low as reasonably achievable. Dictated by Jennifer Larry MD @ Dec 28 2017 10:19AM (Electronic Signature) Report Signed by Proxy. ELIZABETH
== END 2017-12-28 14:15 | disposition home or self-care (01) ==
LOC: MW.ED 09:00
DX: N13.2 Hydronephrosis with renal and ureteral calculous obstruction (principal); Z87.442 Personal history of urinary calculi; Z79.899 Other long term (current) drug therapy
CPT/HCPCS: 74176; 80053; 81001; 85025; 87086; 96361; 96374; 96375; 99284; A9270; J1170; J2405; J7040; 99283

== ENCOUNTER 2017-12-31 11:40 | Day surgery (SDC) | payer BC ==
[~2017-12-31 11:40] MED LIST: Iopamidol 408 MG/ML 50 ML SDV ONE; Lactated Ringers 1,000 ML IV SCH; Sodium Chloride 0.9% 10 ML Syringe FLUSH PRN; Sodium Chloride 0.9% 2.5 ML Syringe FLUSH PRN; ceFAZolin 1 GM Vial IV ONE
[2017-12-31] MEDS ORDERED: Lidocaine 2% 5 ML SDV ONE (12:41)
[2017-12-31] MEDS ORDERED: Propofol 200 MG/20 ML SDV ONE (12:42)
[2017-12-31] MEDS ORDERED: fentaNYL 250 MCG/5 ML SDV ONE (12:42)
[2017-12-31] MEDS ORDERED: Midazolam 1 MG/ML 2 ML SDV ONE (12:42)
[2017-12-31] MEDS ORDERED: Ondansetron 4 MG/2 ML SDV ONE ×2 (12:46→14:29)
[2017-12-31] MEDS ORDERED: Rocuronium 10 MG/ML 10 ML Syringe ONE (12:46)
[2017-12-31] MEDS ORDERED: Glycopyrrolate 0.2 MG/ML SDV ONE (12:46)
[2017-12-31] MEDS ORDERED: Neostigmine Methylsulfate 1 MG/ML 5 ML Syringe ONE (12:46)
[2017-12-31] MEDS ORDERED: Ketorolac 30 MG/ML SDV ONE ×2 (12:46→14:29)
--- NOTE | 2017-12-31 13:21 | PCM.PREANE ---
Preanesthetic Assessment - Anesthesia/Transfusion/Family Hx Anesthesia History: Prior Anesthesia Without Reaction Family History of Anesthesia Reaction: No Transfusion History: No Prior Transfusion(s) Intubation History: Unknown - Review of Systems General: No Symptoms Pulmonary: No Symptoms Cardiovascular: No Symptoms Gastrointestinal: No Symptoms Neurological: No Symptoms Other: Reports: None - Physical Assessment NPO Status Date: 12/30/17 NPO Status Time: 21:00 O2 Sat by Pulse Oximetry: 100 Respiratory Rate: 15 Vital Signs: Last Vital Signs Temp 36.7 C 12/31/17 12:42 Pulse 66 12/31/17 12:42 Resp 15 12/31/17 12:42 BP 152/51 H 12/31/17 12:42 Pulse Ox 100 12/31/17 12:42 Height: 1.73 m Weight: 65.771 kg ASA Class: 1 Mental Status: Alert & Oriented x3 Airway Class: Mallampati = 2 Dentition: Reports: Normal Dentition, [place](s) (multiple crown upper front) Thyro-Mental Finger Breadths: 3 Mouth Opening Finger Breadths: 3 ROM/Head Extension: Full Lungs: Clear to Auscultation, Normal Respiratory Effort Cardiovascular: Regular Rate, Regular Rhythm - Allergies Allergies/Adverse Reactions: Allergies Allergy/AdvReac Type Severity Reaction Status Date / Time No Known Allergies Allergy Verified 12/28/17 09:11 - Blood Blood Available: No - Anesthesia Plan Pre-Op Medication Ordered: None - Acknowledgements Anesthesia Type Planned: General Anesthesia Pt an Appropriate Candidate for the Planned Anesthesia: Yes Alternatives and Risks of Anesthesia Discussed w Pt/Guardian: Yes Pt/Guardian Understands and Agrees with Anesthesia Plan: Yes PreAnesthesia Questionnaire HEENT History: Reports: Other (See Below) Other HEENT History: wears glasses/contacts Genitourinary History: Reports: Renal Calculus Other Genitourinary History: Genital 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 - Infectious Disease History Infectious Disease History: Reports: Chicken Pox - Past Surgical History HEENT Surgical History: Reports: Tonsillectomy Other HEENT Surgeries/Procedures: 2006 Female Surgical History: Reports: Breast Biopsy, Section (x3 \), LEEP, Lithotripsy/ESWL (last week) Musculoskeletal Surgical History: Reports: None Oncologic Surgical History: Reports: Biopsy of Breast Other Oncologic Surgeries/Procedures: 2009 - SUBSTANCE USE Smoking Status *Q: Never Smoker Recreational Drug Use History: No - HOME MEDS Home Medications: Home Meds Acetaminophen/oxyCODONE [Percocet 325-5 MG] 1 each PO Q4H PRN #30 tab 12/24/17 [ Rx] Ondansetron [Zofran ODT] 4 mg PO Q4H PRN #20 tab.dis 12/24/17 [Rx] Tamsulosin [Tamsulosin 24 Hr] 0.4 mg PO BEDTIME #20 cap.er 12/24/17 [Rx] - CURRENT (IN HOUSE) MEDS Current Meds: Current Medications Lactated Ringer's (Ringers, Lactated) 1,000 mls @ 100 mls/hr IV ASDIRECTED CAROLYNN Last Admin: 12/31/17 12:41 Dose: 100 mls/hr Sodium Chloride (Saline Flush) 10 ml FLUSH ASDIRECTED PRN PRN Reason: Keep Vein Open Sodium Chloride (Saline Flush) 2.5 ml FLUSH ASDIRECTED PRN PRN Reason: Keep Vein Open Discontinued Medications Cefazolin Sodium (Ancef) 1 gm IV ONCALL ONE Stop: 12/31/17 00:02 Fentanyl (Sublimaze) Confirm Administered Dose 250 mcg .ROUTE .STK-MED ONE Stop: 12/31/17 12:43 Glycopyrrolate (Robinul) Confirm Administered Dose 0.6 mg .ROUTE .STK-MED ONE Stop: 12/31/17 12:47 Cefazolin Sodium/Dextrose (Ancef) Confirm Administered Dose 50 mls @ as directed .ROUTE .STK-MED ONE Stop: 12/31/17 13:06 Iopamidol (Isovue-200 (41%)) Confirm Administered Dose 50 ml .ROUTE .STK-MED ONE Stop: 12/31/17 07:17 Ketorolac Tromethamine (Toradol) Confirm Administered Dose 30 mg .ROUTE .STK- MED ONE Stop: 12/31/17 12:47 Lidocaine (Xylocaine-Mpf 2%) Confirm Administered Dose 10 ml .ROUTE .STK-MED ONE Stop: 12/31/17 12:42 Midazolam HCl (Versed 1 Mg/Ml) Confirm Administered Dose 2 mg .ROUTE .STK-MED ONE Stop: 12/31/17 12:43 Neostigmine Methylsulfate (Neostigmine) Confirm Administered Dose 5 mg .ROUTE .STK-MED ONE Stop: 12/31/17 12:47 Ondansetron HCl (Zofran) Confirm Administered Dose 4 mg .ROUTE .STK-MED ONE Stop: 12/31/17 12:47 Propofol (Diprivan 20 Ml) Confirm Administered Dose 400 mg .ROUTE .STK-MED ONE Stop: 12/31/17 12:43 Rocuronium Kuna (Zemuron) Confirm Administered Dose 100 mg .ROUTE .STK-MED ONE Stop: 12/31/17 12:47
[2017-12-31] MEDS ORDERED: fentaNYL 100 MCG/2 ML SDV IVPUSH PRN (13:59)
--- NOTE | 2017-12-31 15:00 | PCM.POSTAN ---
POST ANESTHESIA ASSESSMENT - MENTAL STATUS Mental Status: Alert, Oriented - RESPIRATORY Respiratory Status: Respiratory Rate WNL, Airway Patent, O2 Saturation Stable - CARDIOVASCULAR CV Status: Pulse Rate WNL - GASTROINTESTINAL GI Status: No Symptoms - PAIN Pain Score: 0 - POST OP HYDRATION Hydration Status: Adequate & Stable - OBSERVATIONS Free Text/Narrative:: no anesthesia problems
[2017-12-31] MEDS ORDERED: ePHEDrine 50 MG/ML SDV ONE (15:05)
--- NOTE | 2017-12-31 15:23 | PCM48HPAN ---
Post Anesthesia Note - EVALUATION WITHIN 48HRS OF ANESTHETIC Vital Signs in Normal Range: Yes Patient Participated in Evaluation: Yes Respiratory Function Stable: Yes Airway Patent: Yes Cardiovascular Function Stable: Yes Hydration Status Stable: Yes Pain Control Satisfactory: Yes Nausea and Vomiting Control Satisfactory: Yes Mental Status Recovered: Yes Resp Rate: 15 - COMMENTS/OBSERVATIONS Free Text/Narrative:: no anesthesia problems
[2017-12-31 16:08] VITALS: BP 129/71
--- NOTE | 2017-12-31 16:44 | CR ---
EXAMINATION: Ureteroscopy HISTORY: Stone removal COMPARISON: 12/28/2017 TECHNIQUE: 3 operative control films demonstrated. FINDINGS/IMPRESSION: Operative control films demonstrate selection of the left ureter with balloon re moval of a left distal ureteral stone.
--- NOTE | 2018-01-29 18:54 | OR ---
SURGEON: Phong Fernandez M.D. DATE OF PROCEDURE: 12/31/2017 PREOPERATIVE DIAGNOSIS: Left ureterovesical junction stone. POSTOPERATIVE DIAGNOSIS: Left ureterovesical junction stone. OPERATION: Left ureteroscopy and removal of stone. DESCRIPTION OF PROCEDURE: The patient was given general anesthesia, placed in dorsal lithotomy position, prepped and draped in sterile drapes. Cystourethroscopy was done that was normal. The stone was seen right behind the left UVJ. A guidewire was advanced next to the stone. The ureteral tunnel was dilated using the UroMax II balloon dilator. The stone was then broken up using the laser and was removed. The patient tolerated the procedure well and was sent to recovery room in good condition. SAMANTHA / MAKI /[id number]
== END 2017-12-31 15:47 | disposition home or self-care (01) ==
LOC: MW.SDS 11:40
PROVIDERS: ATTEND Urology
DX: N20.1 Calculus of ureter (principal); Z87.442 Personal history of urinary calculi; Z79.899 Other long term (current) drug therapy
CPT/HCPCS: 52353; 76000; 88300; C1769; J0690; J1885; J2250; J2405; J3010; J7120; Q9966; 00910; J2704